=== PATIENT | female | born 1965 | race Caucasian/White ===

== ENCOUNTER 2020-10-03 12:09 | Inpatient (IN) ==
--- NOTE | 2020-10-03 14:07 | Emergency Department Note ---
Impression & Plan Acute hypoxemic respiratory failure, Orthopnea ED Provider Note NAME: CYNTHIA LOMBARDO AGE: 55 SEX: F : 1965 ARRIVES VIA: Walk-In INFORMANT: Patient, ED PROVIDER(S): Randal Major MD Chief Complaint: Shortness of breath HPI: Patient does present with concern for shortness of breath ongoing approximately 3 days. Patient states that it has been fairly constant but is worse with lying down on her back or on her stomach. The patient has had a nonproductive cough. No loss of taste or smell. No recent travel or history of DVT or PE. The patient has no prior history of heart or lung disease. Patient denies any fevers or chills. The patient is not take anything for it at home. The patient does have a history of anxiety but states typically it will just get better with time this has not done so. Patient was seen in the outpatient setting referred here for further evaluation treatment. The patient is not vaccinated for Covid. The patient is a non-smoker. Patient denies any chest pains. Patient denies any recent trauma or falls. Patient denies any nausea vomiting or diarrhea. Patient has not complained of any lower extremity swelling. ROS: See HPI for pertinent positives and negatives. A total of 10 systems were reviewed and otherwise negative. Past medical history: See below Surgical history: See below Social history: See below Physical Exam: GENERAL: NAD, wearing glasses, wearing a mask, non-toxic. EYE EXAM: Normal conjunctiva. PERRL, no anisocoria and EOM's grossly intact w/o pain. NECK: Supple, no nuchal rigidity, no adenopathy, non-tender. No signs of meningismus. LUNGS: Clear to auscultation. Normal chest wall mechanics. HEART: NSR, no MRG. ABDOMEN: Abdomen soft, non-tender, normo-active bowel sounds, no masses, no rebound or guarding. BACK: No CVA TTP. SKIN: No rashes and no bruising. UPPER EXTREMITIES: Upper extremities are grossly normal. LOWER EXTREMITIES: Grossly normal, no edema. Negative Homans' sign bilaterally. NEURO EXAM: A&O x3, cranial nerves II-XII grossly intact, normal speech, moves all 4 extremities on command w/o issue. Differential diagnoses: Reactive airway disease, pneumonia, pneumothorax, COPD, CHF, infections, cardiac ischemia, pulmonary embolism, musculoskeletal, gastrointestinal, as well as other pathologies. Course: Patient was seen and evaluated the bedside. Full history physical exam was performed. EKG interpreted by me Normal sinus rhythm, rate of 93, normal intervals, left axis deviation, Q waves inferiorly. No obvious ST changes. Imaging Studies: See Below Cardiac monitoring: An order was placed for continuous cardiac monitoring. The monitor shows a rate of 99 with sinus rhythm. MDM: Patient was seen due to concern for shortness of breath and primarily complains of orthopnea. The patient did have bladder complete along with CT angiography of the chest. The patient was initially refusing to lay flat for CT. The patient had been placed on oxygen for comfort and was given a small amount of At ana. Patient does have a normal white count H&H and platelet count. The patient's kidney function is unremarkable. Glucose is elevated. Initial troponin negative. BNP is not elevated. Covid negative. Patient CT of the chest shows lung along with low lung volumes with elevation of left hemidiaphragm. There is no obvious PE although somewhat suboptimal fully assessed due to respiratory motion. There are possible atelectatic changes although infection could appear similar. Cardiomegaly is noted with mild distal esophageal wall thickening. The patient was informed of these findings. The patient was hypoxic to 88% was placed on 2 L. The patient was ordered Zosyn to cover for possible infectious etiology of lung disease given the patient's CT scan and oxygen requirement. No obvious PE seen. Parent does not patient does not have any evidence of pericardial effusion. I did speak with the on-call hospitalist Ashlee Vergara PA-C and the patient was admitted to the medicine service by Dr. Nixon. Critical Care: I have personally spent 47 minutes of critical care time in direct management of this patient. This includes bedside care, interpretation of diagnostic studies, and testing, discussion with consultants, patient, and family members, and other require inpatient management activities. This 47 minutes is in excess of all separately billable procedures. Past Med/Surg History Medical History Diabetes mellitus, type II Obesity Panic disorder Surgical History Hx of cholecystectomy Family History Other Diabetes Hypertension Stroke Social History (Updated 10/03/20 @ 21:17 by Ashlee Vergara PA-C) Smoking Status: Never smoker Second Hand Exposure: No; Do You Dip or Chew Tobacco: No; Hx Alcohol Use: Yes Hx Substance Use: Yes Last Used Substance: Days (ago) Preferred Language: Guinean Current Living Situation: Alone Other Information That Helps Us Care for You: No Feels Safe at Home: Yes Assistive Devices: None Allergies Allergies Allergy/AdvReac Type Severity Reaction Status Date / Time Tetracyclines Allergy Mild Rash Unverified 10/03/20 14:19 Home Meds Home Medications Medication Instructions Recorded Confirmed bupropion HCl 150 mg tablet,12 hr 150 mg PO BID 10/03/20 10/03/20 sustained-release (Wellbutrin SR) dulaglutide 1.5 mg/0.5 mL 1.5 mg SUBCUT CAO 10/03/20 10/03/20 subcutaneous pen injector (Trulicity) escitalopram oxalate 10 mg tablet 10 mg PO DAILY 10/03/20 10/03/20 gabapentin 100 mg tablet 200 mg PO HS 10/03/20 10/03/20 glipizide 10 mg tablet, extended 10 mg PO DAILY 10/03/20 10/03/20 release 24 hr lorazepam 0.5 mg tablet 0.5 mg PO DAILY PRN 10/03/20 10/03/20 metformin 1,000 mg tablet 1,000 mg PO BID 10/03/20 10/03/20 Results & Data (ED) Vital Signs Vital Signs - 24 hr 10/03/20 12:54 10/03/20 14:32 10/03/20 14:51 Temperature 37.0 C Temperature Source Oral Pulse Rate 99 H 94 H Pulse Rate [Right Finger] Pulse Rate from SpO2 Sensor 94 H Respiratory Rate 14 25 H Respiratory Effort / Characteristics Blood Pressure 127/85 130/94 Blood Pressure Mean 99 106 Pulse Oximetry 95 98 94 Oxygen Delivery Method Room Air Room Air Oxygen Flow Rate Sepsis Recent Fever Within 48 Hours No Sepsis New/Unexplained Change in Mental Status No Sepsis Action Taken by Nursing No Action Required 10/03/20 15:00 10/03/20 15:09 10/03/20 15:30 Temperature Temperature Source Pulse Rate 90 99 H Pulse Rate [Right Finger] 93 H Pulse Rate from SpO2 Sensor 90 101 H Respiratory Rate 25 H 20 28 H Respiratory Effort / Characteristics Non-Labored Spontaneous Blood Pressure 163/98 H 127/92 Blood Pressure Mean 119 103 Pulse Oximetry 95 95 94 Oxygen Delivery Method Room Air Oxygen Flow Rate Sepsis Recent Fever Within 48 Hours Sepsis New/Unexplained Change in Mental Status Sepsis Action Taken by Nursing 10/03/20 16:01 10/03/20 16:53 10/03/20 17:00 Temperature Temperature Source Pulse Rate 111 H 123 H 108 H Pulse Rate [Right Finger] Pulse Rate from SpO2 Sensor 108 H Respiratory Rate 22 26 H Respiratory Effort / Characteristics Blood Pressure 151/94 H Blood Pressure Mean 113 Pulse Oximetry 88 L Oxygen Delivery Method Oxygen Flow Rate Sepsis Recent Fever Within 48 Hours Sepsis New/Unexplained Change in Mental Status Sepsis Action Taken by Nursing 10/03/20 17:30 Temperature Temperature Source Pulse Rate 112 H Pulse Rate [Right Finger] Pulse Rate from SpO2 Sensor 112 H Respiratory Rate 28 H Respiratory Effort / Characteristics Blood Pressure 151/110 H Blood Pressure Mean 123 Pulse Oximetry 94 Oxygen Delivery Method Nasal Cannula Oxygen Flow Rate 2 Sepsis Recent Fever Within 48 Hours Sepsis New/Unexplained Change in Mental Status Sepsis Action Taken by Shelter Medications Current Medication List: was personally reviewed by me Laboratory Data Attestation: I reviewed the patient's lab results. Result diagrams: 10/03/20 14:44 10/03/20 14:44 Lab Results 10/03/20 10/03/20 10/03/20 Range/Units 14:44 14:44 14:44 WBC 7.94 (4.8-10.8) K/uL RBC 4.78 (4.2-5.4) M/uL Hgb 14.0 (12.0-16.0) g/dL Hct 41.5 (37-47) % MCV 86.8 (80-100) fL MCH 29.3 (25-34) pg MCHC 33.7 (32-36) g/dL RDW Std Deviation 42.5 (36.4-46.3) fL RDW Coeff of Dutch 13.3 (11.5-14.5) % Plt Count 300 (130-400) K/uL MPV 9.7 (7.4-10.4) fL Immature Gran % (Auto) 0.3 % Neut % (Auto) 64.1 % Lymph % (Auto) 28.3 % [place] % (Auto) 4.7 % Eos % (Auto) 2.3 % Baso % (Auto) 0.3 % Neut # (Auto) 5.10 (1.4-6.5) K/uL Lymph # (Auto) 2.25 (1.2-3.4) K/uL [place] # (Auto) 0.37 (0.11-0.59) K/uL Eos # (Auto) 0.18 (0-0.5) K/uL Baso # (Auto) 0.02 (0-0.2) K/uL Immature Gran # (Auto) 0.02 (0.00-0.02) K/uL Sodium 137 (136-145) mmol/L Potassium 3.9 (3.5-5.1) mmol/L Chloride 104 (98-107) mmol/L Carbon Dioxide 23 (21-32) mmol/L Anion Gap 10.0 (3-11) BUN 5 L (7-18) mg/dl Creatinine 0.36 L (0.6-1.2) mg/dl Est Cr Clr Drug Dosing 194.1 ml/min Est GFR ( Amer) 142.7 ml/min Est GFR (Non-Af Amer) 123.1 ml/min BUN/Creatinine Ratio 14.6 (10-20) Glucose 211 H (70-99) mg/dl Calcium 9.1 (8.5-10.1) mg/dl Magnesium 2.0 (1.8-2.4) mg/dl Total Bilirubin 0.3 (0.2-1) mg/dl AST 11 L (15-37) U/L ALT 27 (12-78) U/L Alkaline Phosphatase 58 (45-117) U/L Troponin I < 0.015 (0-0.045) ng/ml NT-Pro-B Natriuret Pep 16 (0-900) pg/ml Total Protein 7.8 (6.4-8.2) gm/dl Albumin 3.7 (3.4-5.0) gm/dl Globulin 4.1 H (2.5-4.0) gm/dl Albumin/Globulin Ratio 0.9 (0.9-2) Procalcitonin (0-0.5) ng/ml COVID-19 Eval Order SARS-CoV-2 (PCR) (Negative) 10/03/20 10/03/20 10/03/20 Range/Units 14:44 14:54 14:54 WBC (4.8-10.8) K/uL RBC (4.2-5.4) M/uL Hgb (12.0-16.0) g/dL Hct (37-47) % MCV (80-100) fL MCH (25-34) pg MCHC (32-36) g/dL RDW Std Deviation (36.4-46.3) fL RDW Coeff of Dutch (11.5-14.5) % Plt Count (130-400) K/uL MPV (7.4-10.4) fL Immature Gran % (Auto) % Neut % (Auto) % Lymph % (Auto) % [place] % (Auto) % Eos % (Auto) % Baso % (Auto) % Neut # (Auto) (1.4-6.5) K/uL Lymph # (Auto) (1.2-3.4) K/uL [place] # (Auto) (0.11-0.59) K/uL Eos # (Auto) (0-0.5) K/uL Baso # (Auto) (0-0.2) K/uL Immature Gran # (Auto) (0.00-0.02) K/uL Sodium (136-145) mmol/L Potassium (3.5-5.1) mmol/L Chloride (98-107) mmol/L Carbon Dioxide (21-32) mmol/L Anion Gap (3-11) BUN (7-18) mg/dl Creatinine (0.6-1.2) mg/dl Est Cr Clr Drug Dosing ml/min Est GFR ( Amer) ml/min Est GFR (Non-Af Amer) ml/min BUN/Creatinine Ratio (10-20) Glucose (70-99) mg/dl Calcium (8.5-10.1) mg/dl Magnesium (1.8-2.4) mg/dl Total Bilirubin (0.2-1) mg/dl AST (15-37) U/L ALT (12-78) U/L Alkaline Phosphatase (45-117) U/L Troponin I (0-0.045) ng/ml NT-Pro-B Natriuret Pep (0-900) pg/ml Total Protein (6.4-8.2) gm/dl Albumin (3.4-5.0) gm/dl Globulin (2.5-4.0) gm/dl Albumin/Globulin Ratio (0.9-2) Procalcitonin < 0.05 (0-0.5) ng/ml COVID-19 Eval Order Covid19 at [facility] SARS-CoV-2 (PCR) NEGATIVE (Negative) Administered Medications Discontinued Medications Albuterol (Albut/Ipratrop 3mg/0.5mg Neb 3 Ml Vial) 6 ml INH NOW STA Stop: 10/03/20 14:33 Last Admin: 10/03/20 15:08 Dose: 6 ml Documented by: [id number] Sodium Chloride (Nss) 500 mls @ 999 mls/hr IV .Q31M STA Stop: 10/03/20 15:02 Last Infusion: 10/03/20 15:21 Dose: 999 mls/hr Documented by: [id number] Admin: 10/03/20 14:50 Dose: 999 mls/hr Documented by: [id number] Lorazepam (Ativan) 0.5 mg in 1 mls @ 1 mls/min IV NOW STA Stop: 10/03/20 16:37 Last Admin: 10/03/20 16:52 Dose: 1 mls/min Documented by: [id number] Piperacillin Sod/Tazobactam Sod (Zosyn) 4.5 gm in 120 mls @ 240 mls/hr IV NOW ONE Stop: 10/03/20 17:45 Last Infusion: 10/03/20 18:37 Dose: 240 mls/hr Documented by: [id number] Admin: 10/03/20 18:07 Dose: 240 mls/hr Documented by: [id number] Ioversol (Optiray 320 125ml) 119 ml IV ONCE ONE Stop: 10/03/20 16:18 Last Admin: 10/03/20 16:17 Dose: 119 ml Documented by: [id number] Methylprednisolone (Methylprednisolone 125 Mg/2 Ml Vial) 60 mg IV NOW STA Stop: 10/03/20 14:33 Last Admin: 10/03/20 14:49 Dose: 60 mg Documented by: [id number] Imaging Data Radiologist's Impression: Chest CTA 10/03/20 14:33 CT ANGIOGRAPHY OF THE CHEST, PULMONARY EMBOLUS PROTOCOL CLINICAL HISTORY: Chest pain. Shortness of breath. Evaluate for pulmonary embolus. COMPARISON STUDY: Chest radiograph May 09, 2014. TECHNIQUE: Following IV administration of 119 mL of Optiray, helical axial images of the chest were obtained utilizing the pulmonary embolus protocol. Maximal intensity projections and sagittal and coronal reformats were viewed on an independent 3D workstation. IV contrast was administered without complication. Automated exposure control was utilized for the study. A dose lowering technique was utilized adhering to the principles of ALARA. CT DOSE: 432.53 mGycm FINDINGS: No pulmonary emboli are identified although segmental and subsegmental pulmonary arteries are suboptimally assessed due to respiratory motion. Note is made of mild to moderate cardiomegaly. There is no pericardial effusion. Mild esophageal wall thickening is present. There is a possible small hiatal hernia. Elevation of the left hemidiaphragm is noted. Lung volumes are di minished. Subpleural lingular and left lower lobe opacity reflect atelectasis. There are additional moderate ground glass opacities within the lungs. Central airways are patent. No pneumothorax or pleural effusion. Lungs are suboptimally assessed due to respiratory motion. There is probable hepatic steatosis. IMPRESSION: 1. No pulmonary emboli identified although segmental and subsegmental pulmonary arteries suboptimally assessed due to respiratory motion. 2. Low lung volumes with elevation of the left hemidiaphragm. Associated lingular and left lower lobe opacity reflects atelectasis. Additional moderate bilateral airspace opacities within lungs favor atelectasis although an infectious process could appear similar. 3. Cardiomegaly. 4. Mild distal esophageal wall thickening. This is nonspecific although may reflect esophagitis. ACT 112: Negative or not required by law. Electronically signed by: Hung Cabral M.D. 10/03/2020 5:10 PM Discharge Plan Visit Data Chief Complaint: Shortness of Breath/Dyspnea Stated Complaint: SOB ED Provider: Randal Major Discharge Problem: Acute hypoxemic respiratory failure, Orthopnea Patient Disposition: Admitted As Inpatient Discharge Instructions Interventions: ED Discharge Assessment Last Done: 10/03/20 20:19
[2020-10-03] MEDS ORDERED: ALBUT/IPRATROP 3MG/0.5MG NEB 3 ML VIAL INH STA (14:32)
[2020-10-03] MEDS ORDERED: SODIUM CHLORIDE 0.9% 500 ML IV STA (14:32)
[2020-10-03] MEDS ORDERED: methylPREDNISolone 125 MG/2 ML VIAL IV STA (14:32)
[2020-10-03 15:05] LABS: Basophils # (auto) 0.02 K/uL (0-0.2); Basophils % (auto) 0.3 %; Eosinophils # (auto) 0.18 K/uL (0-0.5); Eosinophils % (auto) 2.3 %; Hematocrit (blood only) 41.5 % (37-47); Immature Granulocytes # (auto) 0.02 K/uL (0.00-0.02); Immature Granulocytes % (auto) 0.3 %; Lymphocytes # (auto) 2.25 K/uL (1.2-3.4); Lymphocytes % (auto) 28.3 %; Mean Corpuscular Hemoglobin 29.3 pg (25-34); Mean Corpuscular Hgb Conc 33.7 g/dL (32-36); Mean Corpuscular Volume 86.8 fL (80-100); Mean Platelet Volume 9.7 fL (7.4-10.4); Monocytes # (auto) 0.37 K/uL (0.11-0.59); Monocytes % (auto) 4.7 %; Neutrophils % (auto) 64.1 %; Platelet Count 300 K/uL (130-400); RDW Coefficient of Variation 13.3 % (11.5-14.5); RDW Standard Deviation 42.5 fL (36.4-46.3); Red Blood Count 4.78 M/uL (4.2-5.4); White Blood Count 7.94 K/uL (4.8-10.8)
[2020-10-03 15:23] LABS: Alanine Aminotransferase 27 U/L (12-78); Albumin Level 3.7 gm/dl (3.4-5.0); Aspartate Aminotransferase 11 U/L (15-37); BUN Creatinine Ratio 14.6 (10-20); Blood Urea Nitrogen 5 mg/dl (7-18); Calcium 9.1 mg/dl (8.5-10.1); Carbon Dioxide 23 mmol/L (21-32); Chloride 104 mmol/L (98-107); Creatinine Clr Calc Pharmacy 194.1 ml/min; Est GFR (African American) 142.7 ml/min; Est GFR (Non-African American) 123.1 ml/min; Glucose 211 mg/dl (70-99); Potassium 3.9 mmol/L (3.5-5.1); Sodium 137 mmol/L (136-145)
[2020-10-03 15:28] LABS: Albumin Globulin Ratio 0.9 (0.9-2); Alkaline Phosphatase 58 U/L (45-117); Bilirubin,Total 0.3 mg/dl (0.2-1); Globulin 4.1 gm/dl (2.5-4.0); Total Protein 7.8 gm/dl (6.4-8.2); Troponin I < 0.015 ng/ml (0-0.045)
[2020-10-03] MEDS ORDERED: OPTIRAY 320 125ml IV ONE (16:17)
[2020-10-03] MEDS ORDERED: LORazepam 0.5 MG/1 ML VIAL IV STA (16:36)
--- NOTE | 2020-10-03 17:11 | CT Scan Report ---
CT ANGIOGRAPHY OF THE CHEST, PULMONARY EMBOLUS PROTOCOL CLINICAL HISTORY: Chest pain. Shortness of breath. Evaluate for pulmonary embolus. COMPARISON STUDY: Chest radiograph May 09, 2014. TECHNIQUE: Following IV administration of 119 mL of Optiray, helical axial images of the chest were o btained utilizing the pulmonary embolus protocol. Maximal intensity projections and sagittal and cor onal reformats were viewed on an independent 3D workstation. IV contrast was administered without co mplication. Automated exposure control was utilized for the study. A dose lowering technique was ut ilized adhering to the principles of ALARA. CT DOSE: 432.53 mGycm FINDINGS: No pulmonary emboli are identified although segmental and subsegmental pulmonary arteries are suboptimally assessed due to respiratory motion. Note is made of mild to moderate cardiomegaly. T here is no pericardial effusion. Mild esophageal wall thickening is present. There is a possible smal l hiatal hernia. Elevation of the left hemidiaphragm is noted. Lung volumes are diminished. Subpleura l lingular and left lower lobe opacity reflect atelectasis. There are additional moderate ground glas s opacities within the lungs. Central airways are patent. No pneumothorax or pleural effusion. Lungs are suboptimally assessed due to respiratory motion. There is probable hepatic steatosis. IMPRESSION: 1. No pulmonary emboli identified although segmental and subsegmental pulmonary arteries suboptimally assessed due to respiratory motion. 2. Low lung volumes with elevation of the left hemidiaphragm. Associated lingular and left lower lobe opacity reflects atelectasis. Additional moderate bilateral airspace opacities within lungs favor at electasis although an infectious process could appear similar. 3. Cardiomegaly. 4. Mild distal esophageal wall thickening. This is nonspecific although may reflect esophagitis. ACT 112: Negative or not required by law. Electronically signed by: Hung Cabral M.D. 10/03/2020 5:10 PM
[2020-10-03] MEDS ORDERED: PIPERACILL/TAZOBAC CONSULT ACTIVE PRN (17:16)
[2020-10-03] MEDS ORDERED: PIPERACILLIN/TAZOBACTAM 4.5 GM/120 ML BAG IV ONE (17:16)
--- NOTE | 2020-10-03 17:50 | History & Physical Report ---
Date of Service October 03, 2020 Assessment & Plan (1) Orthopnea: Plan: This is a 55yo F with a PMH of panic disorder, type 2 diabetes and obesity who presents with worsening shortness of breath and orthopnea over the past 8 days. Dyspneic at baseline and orthopneic at night No history of CHF, pro-BNP WNL, no evidence of volume overload on chest CTA Afebrile, no leukocytosis or procal elevation to indicate PNA Chest CTA without pulmonary emboli identified although suboptimally assessed due to respiratory motion. Low lung volumes with elevation of the left hemidiaphragm. Associated lingular and LLL opacity reflects atelectasis Given Zosyn, IV solumedrol and albuterol in ER - not indicated to continue at this time Anxiety likely contributing - want to evaluate for cardiac cause as well given tachycardia and orthopnea Monitor on tele, trend troponin, TTE, nocturnal pulse ox, incentive spirometry (2) Diabetes mellitus, type II: Plan: A1c 11.2 in April 2020- repeat A1c Hold home agents BSG elevated at 324 following IV steroids in ED Glycemic consult placed for assistance with mgmt overnight BSG AC HS (3) Panic disorder: Plan: Continue lexapro, bupropion, ativan PRN DVT Ppx: SQ Lovenox Code status: FULL PCP: Renetta Ohara PA-C Dispo: Observation med tele Patient seen in collaboration with Dr. Nixon. Please see addendum. History of Present Illness Chief Complaint: SOB Primary Care Provider: Renetta Vaca PA-C This is a 55yo F with a PMH of panic disorder, type 2 diabetes and obesity who presents with worsening shortness of breath and orthopnea over the past 8 days. Patient is more dyspneic when lying flat to the point that she has been sleeping in an upright position. Believes that anxiety is contributing. Also admits to more sedentary lifestyle in the setting of working from home. Denies any fever, chills, congestion or productive cough. Intermittent dry cough. No chest pain. Does endorse palpitations this evening since breathing treatment and steroids in ED. Denies any lower extremity swelling or history of CHF. Denies any history of tobacco use or COPD. No new medications other than starting glipizide for type 2 diabetes. Denies fever, chills, lightheadedness, headache, chest pain, wheezing, nausea, vomiting, abdominal pain, dysuria, diarrhea constipation. Was sent over by Dr. Thibodeaux for further evaluation of dyspnea. Allergies Allergy/AdvReac Type Severity Reaction Status Date / Time Tetracyclines Allergy Mild Rash Unverified 10/03/20 14:19 Home Medications Medication Instructions Recorded Confirmed Type bupropion HCl 150 mg tablet,12 hr 150 mg PO BID 10/03/20 10/03/20 History sustained-release (Wellbutrin SR) dulaglutide 1.5 mg/0.5 mL 1.5 mg SUBCUT CAO 10/03/20 10/03/20 History subcutaneous pen injector (Trulicity) escitalopram oxalate 10 mg tablet 10 mg PO DAILY 10/03/20 10/03/20 History gabapentin 100 mg tablet 200 mg PO HS 10/03/20 10/03/20 History lorazepam 0.5 mg tablet 0.5 mg PO DAILY PRN 10/03/20 10/03/20 History metformin 1,000 mg tablet 1,000 mg PO BID 10/03/20 10/03/20 History guaifenesin 200 mg tablet 200 mg PO TID PRN #30 tab 10/07/20 Rx insulin glargine 100 unit/mL (3 45 unit SC DAILY 30 Days #13.5 ml 10/07/20 Rx mL) subcutaneous pen (Lantus Solostar U-100 Insulin) pen needle,diabetic, disp unit 32 #100 ea 10/07/20 Rx gauge x 5/32", remover and disposal unit Past Med/Surg History Medical History Diabetes mellitus, type II Obesity Panic disorder Surgical History Hx of cholecystectomy Family History Other Diabetes Hypertension Stroke Social History Smoking Status: Never smoker Second Hand Exposure: No; Hx Alcohol Use: Yes Hx Substance Use: Yes Last Used Substance: Days (ago) Preferred Language: Chinese Communication Ability: Effective marital status: Single Current Living Situation: Alone Feels Safe at Home: Yes Assistive Devices: None Review of Systems Review of Systems: At least ten systems reviewed and negative except as noted in the HPI. Physical Exam Physical Exam: General Appearance: WD/WN, vitals as above, NAD, sitting up in bed, pleasant, conversing easily Head: normocephalic, atraumatic Eyes: normal inspection, PERRL, conjunctivae normal, anicteric sclerae ENT: external ear and nose normal, oropharynx normal Neck: normal visual inspection, trachea midline, no thyromegaly Respiratory: increased respiratory effort, lungs diminished at bases, no wheeze, rales or rhonchi. + accessory muscle use Cardiovascular: tachycardic rate, rhythm, no murmur appreciated, normal peripheral pulses, no BLE edema. Vessels: no JVD Chest: normal inspection of chest Abdomen/GI: normal bowel sounds, soft, nontender, no hepatosplenomegaly Extremities/Musculoskeletal: no cyanosis or clubbing, extremities motor strength 5/5 Neurologic: PERRL, EOMI, accommodation nl, no face palsy, no dysarthria, CN's II-XI intact bilaterally and moves all extremities Psychiatric: A+Ox3, +anxious mood Skin: no rashes, normal color, warm/dry Results & Data Results & Data ([facility]) Vital Signs (Past 12 Hours) Vital Signs Temp Pulse Pulse Resp BP Pulse Ox 10/03/20 15:30 99 H 28 H 127/92 94 10/03/20 15:09 93 H 20 95 10/03/20 15:00 90 25 H 163/98 H 95 10/03/20 14:51 94 H 25 H 130/94 94 10/03/20 14:32 98 10/03/20 12:54 37.0 C 99 H 14 127/85 95 Laboratory Results Short CBC 10/03/20 10/03/20 Range/Units 14:44 14:44 WBC 7.94 (4.8-10.8) K/uL Hgb 14.0 (12.0-16.0) g/dL Hct 41.5 (37-47) % Plt Count 300 (130-400) K/uL Troponin I < 0.015 (0-0.045) ng/ml BMP 10/03/20 14:44 Sodium 137 Potassium 3.9 Chloride 104 Carbon Dioxide 23 BUN 5 L Creatinine 0.36 L Glucose 211 H Calcium 9.1 Cardiac Enzymes 10/03/20 10/03/20 Range/Units 14:44 14:44 Troponin I < 0.015 < 0.015 (0-0.045) ng/ml Liver Function 10/03/20 Range/Units 14:44 Total Bilirubin 0.3 (0.2-1) mg/dl AST 11 L (15-37) U/L ALT 27 (12-78) U/L Alkaline Phosphatase 58 (45-117) U/L Albumin 3.7 (3.4-5.0) gm/dl Diagnostic Findings Chest CTA 10/03/20 14:33 CT ANGIOGRAPHY OF THE CHEST, PULMONARY EMBOLUS PROTOCOL CLINICAL HISTORY: Chest pain. Shortness of breath. Evaluate for pulmonary embolus. COMPARISON STUDY: Chest radiograph May 09, 2014. TECHNIQUE: Following IV administration of 119 mL of Optiray, helical axial images of the chest were obtained utilizing the pulmonary embolus protocol. Maximal intensity projections and sagittal and coronal reformats were viewed on an independent 3D workstation. IV contrast was administered without complication. Automated exposure control was utilized for the study. A dose lowering technique was utilized adhering to the principles of ALARA. CT DOSE: 432.53 mGycm FINDINGS: No pulmonary emboli are identified although segmental and subsegmental pulmonary arteries are suboptimally assessed due to respiratory motion. Note is made of mild to moderate cardiomegaly. There is no pericardial effusion. Mild esophageal wall thickening is present. There is a possible small hiatal hernia. Elevation of the left hemidiaphragm is noted. Lung volumes are diminished. Subpleural lingular and left lower lobe opacity reflect atelectasis. There are additional moderate ground glass opacities within the lungs. Central airways are patent. No pneumothorax or pleural effusion. Lungs are suboptimally assessed due to respiratory motion. There is probable hepatic steatosis. IMPRESSION: 1. No pulmonary emboli identified although segmental and subsegmental pulmonary arteries suboptimally assessed due to respiratory motion. 2. Low lung volumes with elevation of the left hemidiaphragm. Associated lingular and left lower lobe opacity reflects atelectasis. Additional moderate bilateral airspace opacities within lungs favor atelectasis although an infectious process could appear similar. 3. Cardiomegaly. 4. Mild distal esophageal wall thickening. This is nonspecific although may reflect esophagitis. ACT 112: Negative or not required by law. Electronically signed by: Hung Cabral M.D. 10/03/2020 5:10 PM Code Status & VTE Plan VTE Prophylaxis Plan VTE Prophylaxis will be ordered: Yes Supervising Physician Co-Signing Physician Notes Pt seen and examined by me, care coordinated with Ashlee Vergara PA-C, pls refer to her note above for further detail. Pt is a 55yo F w/ hx of panic disorder, type 2 diabetes and obesity who presents with worsening shortness of breath and orthopnea over the past week. Patient believes that her anxiety is contributing, has had anxiety for past 20 yrs. Denies any fever, chills, congestion or productive cough. No chest pain. +palpitations this evening since breathing treatment and steroids in ED. Denies any lower extremity swelling or history of CHF. Denies any history of tobacco use or COPD. CT PE obtained in ED negative for PE. EKG abnormal, last EKG to compare is from 2014. I repeated EKG as pt continues to be tachycardic on my evaluation - current EKG shows PVC, but no ischemic changes. Troponin negative. Infectious etiology unlikely, will follow procalcitonin, plan to discontinue Abx, received zosyn in ED. Currently pt is sitting up in bed, using suppl. O2 but able to speak in full sentences. She is alert and oriented and answering questions appropriately. Overall clear to auscultation without any rhonchi, crackles, or wheezing. HR in 110-120s. Abdomen soft, nontender, nondistended. No LE edema. Skin is warm, dry well perfused. Will admit to tele, will repeat EKG AM, overnight cont. to trend troponin. Plan for Echo in the morning. Await procalcitonin. Encourage IS. Lynn Nixon MD
[2020-10-03] MEDS ORDERED: GLUCOSE 10 TABS/TUBE PO PRN (20:44)
[2020-10-03] MEDS ORDERED: ALBUT/IPRATROP 3MG/0.5MG NEB 3 ML VIAL NEB PRN (20:44)
[2020-10-03] MEDS ORDERED: ACETAMINOPHEN 325 MG TAB PO PRN (20:44)
[2020-10-03] MEDS ORDERED: ONDANSETRON INJ 2 MG/ML 2 ML VIAL IV PRN (20:44)
[2020-10-03] MEDS ORDERED: GLUCAGON FOR INJ 1 MG VIAL SQ PRN (20:44)
[2020-10-03] MEDS ORDERED: GLUCOSE 40% GEL 15 GM TUBE PO PRN (20:44)
[2020-10-03] MEDS ORDERED: CARBOHYDRATES FOR HYPOGLYCEMIA PO PRN (20:44)
[2020-10-03] MEDS ORDERED: DEXTROSE 50% 50 ML SYRINGE IV PRN (20:44)
[2020-10-03] MEDS ORDERED: POLYETHYLENE (MIRALAX) 17 GM PACK PO PRN (20:44)
[2020-10-03] MEDS ORDERED: LORazepam 0.5 MG TAB PO PRN (21:01)
[2020-10-03] MEDS ORDERED: PHARMACY GLYCEMIC MGMT CONSULT PRN (21:04)
[2020-10-03 21:18] LABS: Phosphorus 3.3 mg/dl (2.5-4.9); Troponin I < 0.015 ng/ml (0-0.045)
[2020-10-03] MEDS: MELATONIN 3 MG TAB PO PRN (21:35)
[2020-10-03] MEDS: ENOXAPARIN INJ 40 MG/0.4 ML SYR SQ SCH (21:36)
[2020-10-03] MEDS: GABAPENTIN 100 MG CAP PO SCH (21:36)
[2020-10-03] MEDS: INSULIN ASPART 100 UNITS/ML 3 ML PEN SC SCH (21:36)
[2020-10-03] MEDS: buPROPion SR 150 MG TABCR PO SCH (21:36)
[2020-10-04] MEDS: INSULIN ASPART 100 UNITS/ML 3 ML PEN SC SCH ×6 (00:41→20:39)
[2020-10-04 02:41] LABS: Hematocrit (blood only) 41.1 % (37-47); Hemoglobin 13.9 g/dL (12.0-16.0); Mean Corpuscular Hemoglobin 29.5 pg (25-34); Mean Corpuscular Hgb Conc 33.8 g/dL (32-36); Mean Corpuscular Volume 87.3 fL (80-100); Mean Platelet Volume 9.6 fL (7.4-10.4); Platelet Count 302 K/uL (130-400); RDW Coefficient of Variation 13.6 % (11.5-14.5); RDW Standard Deviation 42.9 fL (36.4-46.3); Red Blood Count 4.71 M/uL (4.2-5.4); White Blood Count 11.18 K/uL (4.8-10.8)
[2020-10-04 03:00] LABS: BUN Creatinine Ratio 16.7 (10-20); Blood Urea Nitrogen 8 mg/dl (7-18); Carbon Dioxide 25 mmol/L (21-32); Chloride 105 mmol/L (98-107); Creatinine Clr Calc Pharmacy 143.6 ml/min; Est GFR (African American) 129.8 ml/min; Glucose 227 mg/dl (70-99); Potassium 4.2 mmol/L (3.5-5.1); Sodium 138 mmol/L (136-145)
[2020-10-04 03:05] LABS: Troponin I < 0.015 ng/ml (0-0.045)
[2020-10-04] MEDS: buPROPion SR 150 MG TABCR PO SCH ×2 (08:39→20:37)
[2020-10-04] MEDS: ESCITALOPRAM OXALATE 10 MG TAB PO SCH (08:39)
--- NOTE | 2020-10-04 08:58 | Electrocardiogram Report ---
Test Reason : Blood Pressure : / mmHG Vent. Rate : 105 BPM Atrial Rate : 105 BPM P-R Int : 156 ms QRS Dur : 092 ms QT Int : 344 ms P-R-T Axes : 040 -43 038 degrees QTc Int : 454 ms Sinus tachycardia Left axis deviation Abnormal ECG When compared with ECG of 03-OCT-2020 20:13, (unconfirmed) Premature atrial complexes are no longer Present Confirmed by Arnel Fonseca ([id number]) on 10/04/2020 8:57:58 AM Referred By: REFERRED SELF Confirmed By:Arnel Fonseca
[2020-10-04] MEDS: INSULIN GLARGINE SOLOSTAR 100 UNITS/ML 3 ML PEN SC SCH (09:18)
--- NOTE | 2020-10-04 10:13 | Pharmacy Report ---
Pharmacy Glycemic Short Note 2 - Date of Service October 04, 2020 - Glycemic Short BSG Results (Last 24 hours): 10/03/20 10/03/20 10/04/20 14:44 20:59 00:21 Glucose 211 H POC Glucose 324 H* 264 H 10/04/20 10/04/20 10/04/20 02:25 04:02 07:56 Glucose 227 H POC Glucose 175 H 226 H OUTPATIENT ANTIDIABETIC REGIMEN: * Trulicity 1.5 mg SC weekly on Sundays * Glipizide 10 mg PO daily * Metformin 1000 mg PO BIDM * HbA1c ordered for tomorrow morning ASSESSMENT: * CC is a 55 year old female who presents with worsening shortness of breath/orthopnea over past ~week * Patient has history of T2DM managed with Trulicity and oral agents * BSGs elevated on admission 211 mg/dL * Solu-medrol 60 mg IV x 1 given in ED -> BSG spiked to 324 mg/dL yesterday evening * No basal insulin given overnight, managed with SC Novolog q4h * No ongoing steroids ordered * Fasting BSG of 226 mg/dL - will order ~0.2 unit/kg basal dose this morning PLAN FOR INPATIENT GLYCEMIC CONTROL: * Hold outpatient oral diabetes medications * Basal insulin * Lantus 20 units SC daily (~0.2 unit/kg) * Bolus insulin * NovoLog per scale ACHS or Q6hrs while NPO * Goal Range: Low 110 mg/dL - High 140 mg/dL * Correction Factor: 25 mg/dL/unit * Nutritional / Prandial insulin per carb ratio of 1 unit per 9 grams CHO consumed * 0200 check with same parameters PLAN FOR DISCHARGE: * Await HbA1c
[2020-10-04] MEDS: LORazepam 0.5 MG TAB PO PRN (11:15)
--- NOTE | 2020-10-04 13:00 | Hospitalist Progress Note ---
Date of Service October 04, 2020 Assessment & Plan (1) Orthopnea: Plan: Worsening SOB associated with orthopnea in the last 8 days CTA chest no pulmonary emboli identified although segmental and subsegmental pulmonary arteries suboptimally assessed due to respiratory motion. Low lung volumes with elevation of the left hemidiaphragm. Associated lingular and left lower lobe opacity reflects atelectasis. Additional moderate bilateral airspace opacities within lungs favor atelectasis although an infectious process could appear similar. pro-BNP WNL, no evidence of volume overload on chest CTA No sign of infection Afebrile, no leukocytosis or procal elevation to indicate PNA Received IV solumedrol and Zosyn on admission- Abx discontinued Continue to have pressure like chest discomfort Troponin negative ECHO pending Will consult cardiology Will continue monitor (2) Diabetes mellitus, type II: Plan: A1c 11.2 in April 2020- repeat A1c Hold home agents BSG elevated at 324 following IV steroids in ED Glycemic consult placed for assistance with mgmt overnight BSG AC HS (3) Panic disorder: Plan: Continue lexapro, bupropion, ativan PRN DVT Ppx: SQ Lovenox Code status: FULL PCP: Renetta Ohara PA-C Dispo: Will discharge once medically stable Admission and Anticipated Discharge Date Admission Date: October 03, 2020 Subjective Pt was seen and examined for follow up of SOB and pressure like discomfort Pt said that she continues to have a pressure in her chest She said that she is unable to lie down flat in the bed She said that she does have SOB with minimal exertion She denies any fever, chills, cough Physical Exam Physical Exam: General- No acute distress Head- atraumatic Eyes- PERRL, EOMI, ENT- oropharynx clear Neck- supple, no JVD Lungs- clear to auscultation Heart- regular rhythm; no murmur Abdomen- normal bowel sounds, soft, nontender Extremities- no calf tenderness Neuro- alert, oriented x 3; PERRL, EOMI; no facial palsy; no dysarthria Skin- warm & dry Results & Data Results & Data ([facility]) Vital Signs (Past 12 Hours) Vital Signs Temp Pulse Pulse Resp BP Pulse Ox Pulse Ox 10/04/20 11:34 36.8 C 96 H 18 136/84 96 10/04/20 07:46 36.4 C L 112 H 18 138/87 92 10/04/20 04:22 110 H 90 10/04/20 04:12 36.8 C 60 18 110/70 97
--- NOTE | 2020-10-04 16:40 | Cardiology Consultation ---
Date of Consultation October 04, 2020 Assessment & Plan (1) Panic disorder: Patient describes subjective shortness of breath and orthopnea. EKG performed 10/04/2020 at 1618 a.m. and reviewed independently reveals sinus tachycardia 105 bpm. Compared to the previous performed yesterday, the previous premature atrial contractions resolved. No evidence of ischemia. Troponin I has been undetectable x3. Echocardiogram reveals normal to hyperdynamic left ventricular systolic function, grade 1 diastolic dysfunction, which is normal for age without Doppler evidence of elevated filling pressures. There is no significant valvular heart disease, no pericardial effusion. The patient is very concerned about her symptoms. I recommend that she remains in the hospital to undergo an exercise stress echocardiogram which will be performed tomorrow. She notes no family history of heart disease. Her most recent LDL cholesterol was performed as an outpatient in April of this year was 80 mg/dL, which is acceptable for her risk factors. History of Present Illness Attending Physician: Gulshan Patricio MD History of Present Illness Chantale Mccarty is a 55-year-old female seen in cardiology consultation per the request of Dr. Patricio for the evaluation of shortness of breath with exertion and when lying flat. Her past medical history is notable for type 2 diabetes mellitus, obesity, and panic disorder. She describes that 5 days ago she had a hard time breathing and she feels like she has to take deep breaths. She has difficulty with shortness of breath with exertion and also feels like she has trouble lying flat like she is going to suffocate. She notes a lot of stress and anxiety at home. She lives independently. Allergies Allergy/AdvReac Type Severity Reaction Status Date / Time Tetracyclines Allergy Mild Rash Unverified 10/03/20 14:19 Home Medications Medication Instructions Recorded Confirmed Type bupropion HCl 150 mg tablet,12 hr 150 mg PO BID 10/03/20 10/03/20 History sustained-release (Wellbutrin SR) dulaglutide 1.5 mg/0.5 mL 1.5 mg SUBCUT CAO 10/03/20 10/03/20 History subcutaneous pen injector (Trulicity) escitalopram oxalate 10 mg tablet 10 mg PO DAILY 10/03/20 10/03/20 History gabapentin 100 mg tablet 200 mg PO HS 10/03/20 10/03/20 History glipizide 10 mg tablet, extended 10 mg PO DAILY 10/03/20 10/03/20 History release 24 hr lorazepam 0.5 mg tablet 0.5 mg PO DAILY PRN 10/03/20 10/03/20 History metformin 1,000 mg tablet 1,000 mg PO BID 10/03/20 10/03/20 History Patient History Medical History Diabetes mellitus, type II Obesity Panic disorder Surgical History Hx of cholecystectomy Family History Other Diabetes Hypertension Stroke Social History Smoking Status: Never smoker Second Hand Exposure: No; Do You Dip or Chew Tobacco: No; Hx Alcohol Use: Yes Hx Substance Use: Yes Last Used Substance: Days (ago) Preferred Language: Croatian Current Living Situation: Alone Other Information That Helps Us Care for You: No Feels Safe at Home: Yes Assistive Devices: None Review of Systems Review of Systems: All systems reviewed & are unremarkable except as noted in HPI & below Physical Exam Physical Exam: Temp Pulse Resp BP Pulse Ox 36.8 C 98 H 18 121/79 94 10/04/20 15:02 10/04/20 15:02 10/04/20 15:02 10/04/20 15:02 10/04/20 15:02 Constitutional: well developed; not ill appearing Respiratory: normal respiratory effort, lungs clear to auscultation Cardiovascular: RRR, no murmur, no edema Gastrointestinal (Abdomen): normal bowel sounds, soft, nontender, no hepatosplenomegaly Neurologic: PERRL, EOMI, accommodation nl, no face palsy, no dysarthria Psychiatric: Orientation: oriented x 3 and cooperative Results & Data ([place]) Vital Signs (Past 12 Hours) Vital Signs Temp Pulse Resp BP Pulse Ox 10/04/20 15:02 36.8 C 98 H 18 121/79 94 10/04/20 11:34 36.8 C 96 H 18 136/84 96 10/04/20 07:46 36.4 C L 112 H 18 138/87 92
[2020-10-04] MEDS: ENOXAPARIN INJ 40 MG/0.4 ML SYR SQ SCH (20:36)
[2020-10-04] MEDS: GABAPENTIN 100 MG CAP PO SCH (20:36)
[2020-10-04] MEDS: MELATONIN 3 MG TAB PO PRN (20:46)
[2020-10-05] MEDS ORDERED: INSULIN ASPART 100 UNITS/ML 3 ML PEN SC SCH (02:00)
[2020-10-05] MEDS: INSULIN ASPART 100 UNITS/ML 3 ML PEN SC SCH ×5 (06:13→21:18)
[2020-10-05 07:39] LABS: Estimated Average Glucose 269 mg/dl
[2020-10-05] MEDS: INSULIN GLARGINE SOLOSTAR 100 UNITS/ML 3 ML PEN SC SCH (10:08)
[2020-10-05] MEDS: ESCITALOPRAM OXALATE 10 MG TAB PO SCH (10:09)
[2020-10-05] MEDS: buPROPion SR 150 MG TABCR PO SCH ×2 (10:09→20:17)
--- NOTE | 2020-10-05 10:19 | Cardiology Progress Note ---
Date of Service October 05, 2020 Assessment & Plan (1) Orthopnea: Plan: The patient underwent an exercise stress echocardiogram. At the time of obtaining her baseline images, the patient states that she could not lie in the left lateral recumbent position due to this exacerbating her symptoms of feeling shortness of breath almost feeling "suffocating ". Images were therefore obtained with the head of the imaging table at a 45 degree angle. The patient exercised to a moderately high peak workload achieving 6 minutes on standard Renard protocol, with no definite repolarization changes to suggest ischemia. The test was terminated due to fatigue and shortness of breath, but when attempts were made for her to transition to the left lateral decubitus position, she described once again severe shortness of breath despite the head of the bed being elevated that reproduced her presenting symptoms. The echocardiographic images were very technically limited due to her being almost upright at the time of imaging, but the left ventricular systolic function incre ased appropriately. The patient was witnessed personally by the undersigned to become extremely orthopneic and uncomfortable when attempting to lie on the imaging table, with resolution of her symptoms immediately when she sat straight up. Her blood pressure response to stress was very elevated, with peak systolic blood pressure 240 mmHg. The results of this test are abnormal, however I do not think this is suggestive of coronary heart disease, although of course this is a consideration in a patient with uncontrolled diabetes and hemoglobin A1c of 11% this is still a consideration.. I went back and reviewed her resting echocardiogram images obtained 10/04/2020. Stable findings were sinus tachycardia 100 bpm, hyperdynamic biventricular systolic function. Grade 1 diastolic dysfunction was noted without suggestion of elevated LV filling pressures. I reviewed the report and the images of her CT angiogram of the chest. The screening chest x-ray image suggests left greater than right bilateral hemidiaphragm elevation in the lung volumes. I compared this to her previous chest x-ray dating back to 2014, and this appears to be a new finding. Left hemidiaphragm dysfunction with certainly explain the reproduction of her symptoms when being asked to lie in the left lateral decubitus position. Per review of her vital signs, she does not have poorly controlled hypertension and I do not think that her With regards to her hypertensive response to exercise, I reviewed her recent blood pressure data, and she does not appear to have uncontrolled hypertension otherwise, and therefore is difficult to say whether or not the symptoms of not being able to breathe after the stress test were due to high blood pressure, or if the high blood pressure was a result of her sensation of not being able to breathe. I am going to advance her diet. I have ordered a formal PA and lateral upright chest x-ray as well as a "sniff test "to assess diaphragmatic motion with respiration. I am going to consult pulmonary medicine to this regard for further input. Admission and Anticipated Discharge Date Admission Date: October 03, 2020 Subjective Patient seen in cardiology follow-up prior to, during, and after exercise stress echocardiogram today. Patient states that she had somewhat of a restful night, she was difficult getting comfortable, due to the noise in the [place]. Her blood pressure has been well controlled overnight. Serial cardiac enzymes are negative. Review of Systems Review of Systems: All systems reviewed & are unremarkable except as noted in HPI & below Respiratory: Shortness of breath when she attempts to lie flat Physical Exam Physical Exam: Temp Pulse Resp BP Pulse Ox 36.8 C 91 H 18 130/89 91 10/05/20 07:23 10/05/20 07:23 10/05/20 07:23 10/05/20 07:23 10/05/20 07:23 Constitutional: WD/WN, vitals as above Respiratory: normal respiratory effort, lungs clear to auscultation Cardiovascular: RRR, no murmur, no edema Gastrointestinal (Abdomen): normal bowel sounds, soft, nontender, no hepatosplenomegaly Neurologic: PERRL, EOMI, accommodation nl, no face palsy, no dysarthria Results & Data ([facility]) Vital Signs (Past 12 Hours) Vital Signs Temp Pulse Pulse Resp BP BP Pulse Ox 10/05/20 07:23 36.8 C 91 H 18 130/89 91 10/05/20 04:26 36.6 C 99 H 20 131/72 92 10/05/20 00:42 88 10/04/20 23:51 36.6 C 89 20 114/74 92 Laboratory Results Intake and Output 10/04/20 10/05/20 10/05/20 22:59 06:59 14:59 Intake Total 240 / 1080 200 / 1080 Balance 240 / 1080 200 / 1080 Intake: Oral 240 / 1080 200 / 1080 Other: Weight 90 kg Weight Measurement Method Standing Scale Diagnostic Findings EKG performed 10/04/2020 revealed sinus tachycardia 105 bpm, with poor R wave progression noted in the precordial leads likely due to body habitus, no significant repolarization changes.
--- NOTE | 2020-10-05 11:40 | XRay Report ---
XR chest 2V PA/lateral CLINICAL HISTORY: orthopnea, concern for diaphragmatic paralysis COMPARISON STUDY: Chest radiograph May 09, 2014. Chest CT October 03, 2020. FINDINGS: Incidental note is made of cholecystectomy clips. Prominent gaseous distention of the colon is noted. Lung volumes are diminished. Moderate elevation the right hemidiaphragm is noted. There is mild elevation the right hemidiaphragm. There is no pneumothorax or pleural effusion. There is no ev idence for pulmonary edema. Mild cardiomegaly is noted. Bibasilar opacities favor atelectasis. IMPRESSION: 1. Low lung volumes. Moderate elevation of the left hemidiaphragm and mild elevation of the right hem idiaphragm. 2. Bibasilar opacities which favor atelectasis. ACT 112: Negative or not required by law. Electronically signed by: Hung Cabral M.D. 10/05/2020 11:39 AM
--- NOTE | 2020-10-05 11:52 | Fluoroscopy Report ---
FL sniff test CLINICAL HISTORY: orthopnea, concern for diaphragmatic dysfunction COMPARISON STUDY: Chest CT October 03, 2020. FLUOROSCOPY TIME: 0.3 minutes. FLUOROSCOPIC IMAGES: 0. Video fluoroscopy was performed. FINDINGS: There is moderate elevation of the hemidiaphragms, greater on the left. Lung volumes are di minished. There is no evidence for hemidiaphragm paralysis. However, there is diminished motion of sandhya th hemidiaphragms suggestive of paresis. There is no paradoxical motion of the hemidiaphragms. IMPRESSION: 1. Moderate elevation of the hemidiaphragms, greater on the left. 2. No evidence for hemidiaphragm paralysis. However, diminished motion of both hemidiaphragms suggest silvio of paresis. ACT 112: Negative or not required by law. Electronically signed by: Hung Cabral M.D. 10/05/2020 11:51 AM
--- NOTE | 2020-10-05 12:41 | Pharmacy Report ---
Pharmacy Glycemic Short Note 2 - Date of Service October 05, 2020 - Glycemic Short BSG Results (Last 24 hours): 10/04/20 10/04/20 10/05/20 16:29 20:21 02:15 POC Glucose 260 H 293 H 177 H 10/05/20 10/05/20 10/05/20 05:54 07:38 12:00 POC Glucose 232 H 239 H 284 H OUTPATIENT ANTIDIABETIC REGIMEN: * Trulicity 1.5 mg SC weekly on Sundays * Glipizide 10 mg PO daily * Metformin 1000 mg PO BIDM * HbA1c: 11% (10/05/20) ASSESSMENT: 10/05: * BSGs elevated yesterday, ranging 226-293 mg/dL * Received 63 units of insulin (20 units of Lantus and 43 units of prandial/correctional bolus) * NPO this morning for stress echocardiogram, diet ordered for lunch * Will increase Lantus and tighten Novolog 10/04: * CC is a 55 year old female who presents with worsening shortness of breath/orthopnea over past ~week * Patient has history of T2DM managed with Trulicity and oral agents * BSGs elevated on admission 211 mg/dL * Solu-medrol 60 mg IV x 1 given in ED -> BSG spiked to 324 mg/dL yesterday evening * No basal insulin given overnight, managed with SC Novolog q4h * No ongoing steroids ordered * Fasting BSG of 226 mg/dL - will order ~0.2 unit/kg basal dose this morning PLAN FOR INPATIENT GLYCEMIC CONTROL: * Hold outpatient oral diabetes medications * Basal insulin - increase * Lantus 20 units SC x 1 this morning * Will order additional Lantus 20 units with lunch now that diet is ordered * Bolus insulin * NovoLog per scale ACHS or Q6hrs while NPO * Goal Range: Low 110 mg/dL - High 140 mg/dL * Correction Factor: 20 mg/dL/unit * Nutritional / Prandial insulin per carb ratio of 1 unit per 6 grams CHO consumed * Overnight checks at 00,04 with same parameters PLAN FOR DISCHARGE: * HbA1c of 11% is significantly above goal of less than 7% * Continue Trulicity and metformin * Patient should be initiated on insulin at discharge - likely d/c glipizide if this does happen * Doses TBD
[2020-10-05] MEDS ORDERED: INSULIN GLARGINE SOLOSTAR 100 UNITS/ML 3 ML PEN SC ONE ×2 (12:45)
--- NOTE | 2020-10-05 17:03 | Hospitalist Progress Note ---
Date of Service October 05, 2020 Assessment & Plan (1) Orthopnea: Plan: Worsening SOB associated with orthopnea in the last 8 days CTA chest no pulmonary emboli identified although segmental and subsegmental pulmonary arteries suboptimally assessed due to respiratory motion. Low lung volumes with elevation of the left hemidiaphragm. Associated lingular and left lower lobe opacity reflects atelectasis. Additional moderate bilateral airspace opacities within lungs favor atelectasis although an infectious process could appear similar. pro-BNP WNL, no evidence of volume overload on chest CTA No sign of infection Afebrile, no leukocytosis or procal elevation to indicate PNA Received IV solumedrol and Zosyn on admission- Abx discontinued Continue to have pressure like chest discomfort Troponin negative x3 negative ECHO showed LV wall motion is normal to hyperdynamic. Ejection fraction 65 to 70% Cardiology on board Exercise stress echo was terminated after 6-minute due to patient became fatigue with no definite repolarization changes to suggest ischemia. As per cardio her symptom does not seem to correlate with cardiac etiology (2) Elevated hemidiaphragm: Plan: Etiology unknown CTA chest showed low lung volumes with elevation of the left hemidiaphragm Sniff test showed moderate elevation of the hemidiaphragms, greater on the left. No evidence for hemidiaphragm paralysis. However, diminished motion of both hemidiaphragms suggestive of paresis. Pulmonology on board ABG obtained and did not showed no evidence of hypercapnic Patient will need outpatient PFT to assess supine and upright spirometry to look at the left VC Continue incentive spirometry Will need CT surgeon eval for possible plication of the left side diaphragm (3) Diabetes mellitus, type II: Plan: Most recent hemoglobin A1c 11 on 10/05/20 Hold home agents BSG elevated at 324 following IV steroids in ED Pharmacy consulted for glycemic management inclusion paraeducator on board Patient agreed to start on insulin on discharge Continue monitor blood sugar (4) Panic disorder: Plan: Continue lexapro, bupropion, ativan PRN DVT Ppx: SQ Lovenox Code status: FULL PCP: Renetta Ohara PA-C Dispo: Will discharge once medically stable Admission and Anticipated Discharge Date Admission Date: October 03, 2020 Subjective Patient was seen and examined for follow-up of shortness of breath Sitting in bed with no distress Patient said she continued to have hard time to breathe while lying down flat She said that she got tired after 6-minute during the stress test Denies any chest pain, palpitation, dizziness, and fever Physical Exam Physical Exam: General- No acute distress Head- atraumatic Eyes- PERRL, EOMI, ENT- oropharynx clear Neck- supple, no JVD Lungs- clear to auscultation Heart- regular rhythm; no murmur Abdomen- normal bowel sounds, soft, nontender Extremities- no calf tenderness Neuro- alert, oriented x 3; PERRL, EOMI; no facial palsy; no dysarthria Skin- warm & dry Results & Data Results & Data ([facility]) Vital Signs (Past 12 Hours) Vital Signs Temp Pulse Pulse Resp BP Pulse Ox 10/05/20 15:06 36.9 C 105 H 16 120/84 92 10/05/20 07:23 36.8 C 91 H 18 130/89 91 10/05/20 07:00 97 H
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
[2020-10-05 19:05] LABS: Base Excess ABG -0.4 mEq/L (-9-1.8); HCO3 ABG 23 mmol/L (19-24); Oxygen Saturation ABG 94.9 % (90-95); PCO2 ABG 36 mmHg (35-46); PO2 ABG 70 mmHg (80-95); pH ABG 7.43 (7.35-7.45)
[2020-10-05 19:07] LABS: Allen Test POS (Pos)
[2020-10-05] MEDS: LORazepam 0.5 MG TAB PO PRN (20:16)
[2020-10-05] MEDS: MELATONIN 3 MG TAB PO PRN (20:17)
[2020-10-05] MEDS: GABAPENTIN 100 MG CAP PO SCH (20:17)
[2020-10-05] MEDS: ENOXAPARIN INJ 40 MG/0.4 ML SYR SQ SCH (20:17)
[2020-10-06] MEDS: INSULIN ASPART 100 UNITS/ML 3 ML PEN SC SCH ×6 (00:03→20:43)
[2020-10-06 05:42] LABS: Hematocrit (blood only) 40.4 % (37-47); Hemoglobin 13.4 g/dL (12.0-16.0); Mean Corpuscular Hemoglobin 29.5 pg (25-34); Mean Corpuscular Hgb Conc 33.2 g/dL (32-36); Mean Platelet Volume 9.6 fL (7.4-10.4); Platelet Count 310 K/uL (130-400); RDW Coefficient of Variation 13.6 % (11.5-14.5); RDW Standard Deviation 44.5 fL (36.4-46.3); Red Blood Count 4.54 M/uL (4.2-5.4); White Blood Count 8.91 K/uL (4.8-10.8)
[2020-10-06 06:15] LABS: Creatinine Clr Calc Pharmacy 141.4 ml/min; Est GFR (African American) 128.9 ml/min; Est GFR (Non-African American) 111.2 ml/min
[2020-10-06] MEDS: buPROPion SR 150 MG TABCR PO SCH ×2 (08:32→20:36)
[2020-10-06] MEDS: ESCITALOPRAM OXALATE 10 MG TAB PO SCH (08:32)
[2020-10-06] MEDS ORDERED: INSULIN GLARGINE SOLOSTAR 100 UNITS/ML 3 ML PEN SC SCH (09:00)
--- NOTE | 2020-10-06 11:39 | Cardiology Progress Note ---
Date of Service October 06, 2020 Assessment & Plan (1) Elevated hemidiaphragm: (2) Shortness of breath: (3) Orthopnea: Plan: Arterial blood gas performed on room air yesterday revealed pH 7.43, PCO2 36, PaO2 78 mmHg, bicarbonate 23, oxygen saturation 94.9%. Nocturnal pulse oximetry recorded this hospital stay 10/04, was in the low 80s, 82 to 87%, one measurement as low as 76%. Chest x-ray reveals low lung volumes, moderate elevation of the left hemidiaphragm and mild elevation of the right hemidiaphragm with atelectasis. Fluoroscopy sniff test revealed moderate elevation of the hemidiaphragms, greater on the left, without evidence of paralysis however diminished motion of both hemidiaphragms noted, consistent with paresis per the radiology report. Pulmonary medicine input noted and appreciated, screen for myasthenia gravis antibodies obtained, results of which are pending. Of note, the patient's images from 2014 do not reflect hemidiaphragm elevation, and she did have a cholecystectomy and hernia repair at around that time. We will proceed with obtaining lung volumes, and anticipate outpatient consultation with [place] [facility] I have placed a referral in her outpatient chart. Once the spirometry is completed, I anticipate she will be stable for discharge. Of note her diabetes is poorly controlled, hemoglobin A1c 11%, we need to work on optimizing this as an outpatient because of surgical plication of the left hemidiaphragm is to take place, she would need to be optimized from a diabetes standpoint in advance and effort to promote healing. Admission and Anticipated Discharge Date Admission Date: October 05, 2020 Subjective Patient seen in follow-up. She slept last night sitting upright with adjustable bed, and in the bedside chair as has been her routine at home for the week leading up to this hospital stay. Telemetry reveals sinus rhythm and sinus tachycardia in the range of 90 to 100 bpm. Physical Exam Physical Exam: Temp Pulse Resp BP Pulse Ox 36.8 C 100 H 18 115/79 95 10/06/20 11:09 10/06/20 11:09 10/06/20 11:09 10/06/20 11:10/06/20 11:09 Constitutional: no acute distress Respiratory: Decreased breath sounds bilaterally at the bases, no wheezing, good respiratory effort Cardiovascular: RRR, no murmur, no edema Gastrointestinal (Abdomen): normal bowel sounds, soft, nontender, no hepatosplenomegaly Neurologic: PERRL, EOMI, accommodation nl, no face palsy, no dysarthria Results & Data ([facility]) Vital Signs (Past 12 Hours) Vital Signs Temp Pulse Resp BP Pulse Ox 10/06/20 11:09 36.8 C 100 H 18 115/79 95 10/06/20 08:19 36.6 C 101 H 16 127/73 92 10/06/20 05:01 36.6 C 101 H 18 118/80 92
[2020-10-06] MEDS ORDERED: INSULIN GLARGINE SOLOSTAR 100 UNITS/ML 3 ML PEN SC ONE (12:00)
[2020-10-06] MEDS ORDERED: INSULIN HUMAN REGULAR PER UNIT 5 UNITS in SYRINGE 4.95 ML IV ONE (12:00)
--- NOTE | 2020-10-06 12:08 | Pharmacy Report ---
Pharmacy Glycemic Short Note 2 - Date of Service October 06, 2020 - Glycemic Short BSG Results (Last 24 hours): 10/05/20 10/05/20 10/05/20 12:00 16:35 20:46 POC Glucose 284 H 266 H 223 H 10/05/20 10/06/20 10/06/20 23:57 03:41 07:59 POC Glucose 153 H 108 H 149 H 10/06/20 10/06/20 11:32 11:33 POC Glucose 304 H* 299 H OUTPATIENT ANTIDIABETIC REGIMEN: * Trulicity 1.5 mg SC weekly on Sundays * Glipizide 10 mg PO daily * Metformin 1000 mg PO BIDM * HbA1c: 11% (10/05/20) ASSESSMENT: 10/06: * BSGs elevated yesterday, ranging 153-284 mg/dL * Received 78 units of insulin (40 units of Lantus and 38 units of prandial/correctional bolus) * Fasting BSG of 144 mg/dL this morning and lunch BSG of 304 mg/dL * Will further tighten carb ratio and give IV insulin bolus with lunch (5 units IV x 1) * Increase basal insulin today 10/04: * CC is a 55 year old female who presents with worsening shortness of breath/orthopnea over past ~week * Patient has history of T2DM managed with Trulicity and oral agents * BSGs elevated on admission 211 mg/dL * Solu-medrol 60 mg IV x 1 given in ED -> BSG spiked to 324 mg/dL yesterday evening * No basal insulin given overnight, managed with SC Novolog q4h * No ongoing steroids ordered * Fasting BSG of 226 mg/dL - will order ~0.2 unit/kg basal dose this morning PLAN FOR INPATIENT GLYCEMIC CONTROL: * Hold outpatient oral diabetes medications * Basal insulin - increase * Lantus 25 units SC x 1 this morning * Will order additional Lantus 20 units with lunch * Bolus insulin * NovoLog per scale ACHS or Q6hrs while NPO * Goal Range: Low 110 mg/dL - High 140 mg/dL * Correction Factor: 20 mg/dL/unit * Nutritional / Prandial insulin per carb ratio of 1 unit per 5 grams CHO consumed * Overnight check at 0200 with same parameters PLAN FOR DISCHARGE: * HbA1c of 11% is significantly above goal of less than 7% * Continue Trulicity and metformin * Patient should be initiated on insulin at discharge * At this point, seems reasonable to discharge with insulin glargine 30 units SC daily * Suggest discontinuing glipizide if insulin is initiated to limit hypogl ycemia * Will require prompt outpatient follow-up for further insulin dose titration
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
--- NOTE | 2020-10-06 15:40 | Electrocardiogram Report ---
Test Reason : Blood Pressure : / mmHG Vent. Rate : 093 BPM Atrial Rate : 093 BPM P-R Int : 146 ms QRS Dur : 102 ms QT Int : 374 ms P-R-T Axes : 042 -50 030 degrees QTc Int : 465 ms Normal sinus rhythm Low voltage QRS Left anterior fascicular block Inferior infarct , age undetermined Cannot rule out Anterior infarct , age undetermined Abnormal ECG When compared with ECG of 09-MAY-2014 15:54, No significant change Confirmed by Arnel Fonseca ([id number]) on 10/06/2020 3:39:51 PM Referred By: SELF Confirmed By:Arnel Fonseca
--- NOTE | 2020-10-06 16:00 | Electrocardiogram Report ---
Test Reason : Blood Pressure : / mmHG Vent. Rate : 112 BPM Atrial Rate : 112 BPM P-R Int : 144 ms QRS Dur : 090 ms QT Int : 338 ms P-R-T Axes : 000 -43 014 degrees QTc Int : 461 ms Sinus tachycardia with Premature atrial complexes Left axis deviation Inferior infarct (cited on or before 03-OCT-2020) Abnormal ECG When compared with ECG of 03-OCT-2020 14:42, (unconfirmed) Premature atrial complexes are now Present Confirmed by Arnel Fonseca ([id number]) on 10/06/2020 3:59:58 PM Referred By: REFERRED SELF Confirmed By:Arnel Fonseca
--- NOTE | 2020-10-06 17:48 | Hospitalist Progress Note ---
Date of Service October 06, 2020 Assessment & Plan (1) Orthopnea: Plan: Worsening SOB associated with orthopnea in the last 8 days CTA chest no pulmonary emboli identified although segmental and subsegmental pulmonary arteries suboptimally assessed due to respiratory motion. Low lung volumes with elevation of the left hemidiaphragm. Associated lingular and left lower lobe opacity reflects atelectasis. Additional moderate bilateral airspace opacities within lungs favor atelectasis although an infectious process could appear similar. pro-BNP WNL, no evidence of volume overload on chest CTA No sign of infection Afebrile, no leukocytosis or procal elevation to indicate PNA Received IV solumedrol and Zosyn on admission- Abx discontinued Continue to have pressure like chest discomfort Troponin negative x3 negative ECHO showed LV wall motion is normal to hyperdynamic. Ejection fraction 65 to 70% Cardiology on board Exercise stress echo was terminated after 6-minute due to patient became fatigue with no definite repolarization changes to suggest ischemia. As per cardio her symptom does not seem to correlate with cardiac etiology Referral placed for thoracic surgeon at [facility] for the elevate hemidiaphragm (2) Elevated hemidiaphragm: Plan: Etiology unknown CTA chest showed low lung volumes with elevation of the left hemidiaphragm Sniff test showed moderate elevation of the hemidiaphragms, greater on the left. No evidence for hemidiaphragm paralysis. However, diminished motion of both hemidiaphragms suggestive of paresis. Pulmonology on board Continue guaifenesin and flutter valve ABG obtained and did not showed any evidence of hypercapnic Patient will need outpatient full PFT to assess supine and upright spirometry to look at the left VC Bedside spirometry done at baseline does not suggest any paralysis of the diaphragm Referral placed in [facility] for evaluation with thoracic surgeon at [facility] (3) Diabetes mellitus, type II: Plan: Most recent hemoglobin A1c 11 on 10/05/20 Hold home agents BSG elevated at 324 following IV steroids in ED Pharmacy consulted for glycemic management family life educator on board Patient agreed to start on insulin on discharge Continue monitor blood sugar (4) Panic disorder: Plan: Continue lexapro, bupropion, ativan PRN DVT Ppx: SQ Lovenox Code status: FULL PCP: Renetta Ohara PA-C Dispo: Possible discharge tomorrow Admission and Anticipated Discharge Date Admission Date: October 05, 2020 Subjective Patient was seen and examined for follow-up of orthopnea Sitting in chair with no distress Patient said she was able to sleep last night with the head of the bed tilted up She said that she is feeling better, but she continued to unable to bring up phlegm Denies any chest pain, palpitation, dizziness, shortness of breath. RN will tell you this report too much Tylenol on Physical Exam Physical Exam: General- No acute distress Head- atraumatic Eyes- PERRL, EOMI, ENT- oropharynx clear Neck- supple, no JVD Lungs- clear to auscultation Heart- regular rhythm; no murmur Abdomen- normal bowel sounds, soft, nontender Extremities- no calf tenderness Neuro- alert, oriented x 3; PERRL, EOMI; no facial palsy; no dysarthria Skin- warm & dry Results & Data Results & Data ([facility]) Vital Signs (Past 12 Hours) Vital Signs Temp Pulse Pulse Resp BP Pulse Ox 10/06/20 15:20 37.0 C 93 H 18 110/75 94 10/06/20 14:15 96 H 10/06/20 11:09 36.8 C 100 H 18 115/79 95 10/06/20 08:19 36.6 C 101 H 16 127/73 92 10/06/20 07:00 96 H
[2020-10-06] MEDS: LORazepam 0.5 MG TAB PO PRN (20:35)
[2020-10-06] MEDS: MELATONIN 3 MG TAB PO PRN (20:35)
[2020-10-06] MEDS: ENOXAPARIN INJ 40 MG/0.4 ML SYR SQ SCH (20:36)
[2020-10-06] MEDS: guaiFENesin 600 MG TABCR PO SCH (20:36)
[2020-10-06] MEDS: GABAPENTIN 100 MG CAP PO SCH (20:36)
[2020-10-07] MEDS ORDERED: INSULIN ASPART 100 UNITS/ML 3 ML PEN SC SCH (02:00)
[2020-10-07] MEDS: ESCITALOPRAM OXALATE 10 MG TAB PO SCH (08:51)
[2020-10-07] MEDS: guaiFENesin 600 MG TABCR PO SCH (08:51)
[2020-10-07] MEDS: buPROPion SR 150 MG TABCR PO SCH (08:51)
[2020-10-07] MEDS: INSULIN ASPART 100 UNITS/ML 3 ML PEN SC SCH ×2 (08:53→12:23)
[2020-10-07] MEDS ORDERED: INSULIN GLARGINE SOLOSTAR 100 UNITS/ML 3 ML PEN SC SCH (09:00)
--- NOTE | 2020-10-07 09:19 | Pulmonology Progress Note ---
Date of Service October 07, 2020 Assessment & Plan (1) Shortness of breath: (2) Elevated hemidiaphragm: (3) Obesity: Plan: CT chest 10/03/2020 personally reviewed: Mosaicism appreciated with dependent groundglass opacities Elevated left hemidiaphragm with compression atelectasis of the left lower lobe No mediastinal adenopathy Chest x-ray from [address] abdomen pelvis from 2015 were reviewed and it did not show elevation of the left hemidiaphragm at that time. Sniff test 10/05/2020: No evidence of diaphragm paralysis. Diminished motion could represent weakness or poor effort --Shortness of breath Worse when she is laying flat All of her symptoms started approximately a week ago Morbid obesity along with elevated diaphragm and diaphragmatic weakness could be one of the reasons ABG does not show any signs of hypercapnia. Patient recently had trauma while she was kayaking with her friend which resulted in chest pain Patient does have history of anxiety with panic attacks. She does not think this is panic attacks --Elevated left hemidiaphragm Etiology is unclear Patient denies any surgeries of the neck or chest area since 2014 The only surgery she had was cholecystectomy. Spirometry 10/06/2020 personally reviewed: Sitting: FEV1 1.04 L 39%, FVC 1.25 L 37%, FEV1/FVC 83% Supine: FEV1 0.66 L 25%, FVC 0.78 L 23%, FEV1/FVC 85% There is decrease in FVC by 14% going from sitting to supine which does go with diaphragmatic weakness. It seems patient will benefit from diaphragmatic plication. Weight loss is also recommended --Obesity Advised to lose with diet and exercise Plan: Full PFTs as an outpatient There is decrease in FVC by 14% from sitting to supine which does go with diaphragmatic weakness. CT surgeon consult after the spirometry could be thought of if they are willing to take the patient directly for possible plication of the left side Guaifenesin and flutter valve ordered for chest congestion. Pulmonary will follow peripherally. Please call directly with any questions. Please note the above document was generated using voice recognition software. It may contain grammatical, syntax or spelling errors.Any formal questions or concerns about the content, text or information contained within the body of this dictation should be directly addressed to the provider for clarification. Admission and Anticipated Discharge Date Admission Date: October 05, 2020 Subjective Patient seen and examined at bedside. No acute distress, no adverse events overnight. Patient has been using incentive spirometry but getting only 500 mL fluid. Patient did have spirometry done yesterday. Overall she feels better. Has been using flutter valve and able to bring up phlegm. Review of Systems Review of Systems: All systems reviewed & are unremarkable except as noted in Subjective Physical Exam Physical Exam: Constitutional: No acute distress HEENT: EOMI, PERRLA Respiratory system: Decreased air entry left lower lobe, no wheeze, no rhonchi, no crackle CVS: S1-S2 positive, no murmurs or gallops Abdomen: Soft, nontender, nondistended, positive bowel sounds x4, obese Extremities: +2 pulses bilaterally radialis/ dorsalis pedis, no cyanosis, no edema Neuro: Awake alert oriented x3 Psych: Normal mood and affect G/U: No [place] Skin: no rashes, warm and dry Lymphatic: no cervical or axillary lymphadenopathy Results & Data Results & Data ([facility]) Vital Signs (Past 12 Hours) Vital Signs Temp Pulse Pulse Resp BP Pulse Ox 10/07/20 08:26 36.5 C 77 16 137/83 98 10/07/20 07:19 93 H 10/07/20 03:31 37.1 C 91 H 20 130/85 90 10/07/20 00:00 36.5 C 86 18 117/78 90 10/06/20 22:19 93 H 10/06/20 05:17 10/06/20 05:17 PG Care Time/CCT Total # of Minutes Spent Total Time Spent with Patient: Total time spent is greater than 50% in coordination of care (as documented) at patient's floor/unit and/or counseling patient: Coding Level of Care Code 19363 Subseq Hosp Care Lvl 2 Diagnoses Shortness of breath R06.02 Elevated hemidiaphragm J98.6 Obesity E66.9
--- NOTE | 2020-10-07 12:42 | Hospitalist Progress Note ---
Date of Service October 07, 2020 Assessment & Plan (1) Orthopnea: Plan: Worsening SOB associated with orthopnea in the last 8 days CTA chest no pulmonary emboli identified although segmental and subsegmental pulmonary arteries suboptimally assessed due to respiratory motion. Low lung volumes with elevation of the left hemidiaphragm. Associated lingular and left lower lobe opacity reflects atelectasis. Additional moderate bilateral airspace opacities within lungs favor atelectasis although an infectious process could appear similar. pro-BNP WNL, no evidence of volume overload on chest CTA No sign of infection Afebrile, no leukocytosis or procal elevation to indicate PNA Received IV solumedrol and Zosyn on admission- Abx discontinued Continue to have pressure like chest discomfort Troponin negative x3 negative ECHO showed LV wall motion is normal to hyperdynamic. Ejection fraction 65 to 70% Cardiology on board Exercise stress echo was terminated after 6-minute due to patient became fatigue with no definite repolarization changes to suggest ischemia. As per cardio her symptom does not seem to correlate with cardiac etiology Referral placed for thoracic surgeon at [facility] for the elevate hemidiaphragm (2) Elevated hemidiaphragm: Plan: Etiology unknown CTA chest showed low lung volumes with elevation of the left hemidiaphragm Sniff test showed moderate elevation of the hemidiaphragms, greater on the left. No evidence for hemidiaphragm paralysis. However, diminished motion of both hemidiaphragms suggestive of paresis. Pulmonology on board Continue guaifenesin and flutter valve ABG obtained and did not showed any evidence of hypercapnic Patient will need outpatient full PFT to assess supine and upright spirometry to look at the left VC Spirometry 10/06/2020 reviewed by Pulm Sitting: FEV1 1.04 L 39%, FVC 1.25 L 37%, FEV1/FVC 83% Supine: FEV1 0.66 L 25%, FVC 0.78 L 23%, FEV1/FVC 85% There is decrease in FVC by 14% going from sitting to supine which does go with diaphragmatic weakness. As per Pulm pt might benefit from diaphragmatic plication. case discussed with Pulm Dr. Mendieta that suggest to check with case hardener to see if pt will be able to quality for trilogy or Bipap to use at night Pt does not qualify for Bipap or trilogy at this time as per case hardener. (insurance will not paid for it) Referral placed in epic for evaluation with thoracic surgeon at [facility] [place] (3) Diabetes mellitus, type II: Plan: Most recent hemoglobin A1c 11 on 10/05/20 Hold home agents BSG elevated at 324 following IV steroids in ED Pharmacy consulted for glycemic management life educator on board Patient agreed to start on insulin on discharge case discussed with pharmacy that recommended Lantus 45 unit daily Will discontinue glipizide on discharge Continue Trulicity and Metformin Continue monitor blood sugar (4) Panic disorder: Plan: Continue lexapro, bupropion, ativan PRN Obesity BMI 34.8 Counseling on weight loss DVT Ppx: SQ Lovenox Code status: FULL PCP: Renetta Ohara PA-C Dispo: Will discharge home today Admission and Anticipated Discharge Date Admission Date: October 05, 2020 Subjective Patient was seen and examined for follow-up of orthopnea and elevated hemidiaphragm Sitting in chair with no distress Pt said that she feels better today She said that she slept well last night with the head of the bed up She said that her breathing is better Denies any chest pain, palpitation, dizziness, shortness of breath. Physical Exam Physical Exam: General- No acute distress Head- atraumatic Eyes- PERRL, EOMI, ENT- oropharynx clear Neck- supple, no JVD Lungs- clear to auscultation Heart- regular rhythm; no murmur Abdomen- normal bowel sounds, soft, nontender Extremities- no calf tenderness Neuro- alert, oriented x 3; PERRL, EOMI; no facial palsy; no dysarthria Skin- warm & dry Results & Data Results & Data ([facility]) Vital Signs (Past 12 Hours) Vital Signs Temp Pulse Pulse Resp BP Pulse Ox 10/07/20 12:07 37.2 C 93 H 16 128/85 92 10/07/20 08:26 36.5 C 77 16 137/83 98 10/07/20 07:19 93 H 10/07/20 03:31 37.1 C 91 H 20 130/85 90
--- NOTE | 2020-10-07 13:37 | Discharge Summary ---
Date of Service October 07, 2020 Admission HPI Per Admitting Provider This is a 55yo F with a PMH of panic disorder, type 2 diabetes and obesity who presents with worsening shortness of breath and orthopnea over the past 8 days. Patient is more dyspneic when lying flat to the point that she has been sleeping in an upright position. Believes that anxiety is contributing. Also admits to more sedentary lifestyle in the setting of working from home. Denies any fever, chills, congestion or productive cough. Intermittent dry cough. No chest pain. Does endorse palpitations this evening since breathing treatment and steroids in ED. Denies any lower extremity swelling or history of CHF. Denies any history of tobacco use or COPD. No new medications other than starting glipizide for type 2 diabetes. Denies fever, chills, lightheadedness, headache, chest pain, wheezing, nausea, vomiting, abdominal pain, dysuria, diarrhea constipation. Was sent over by Dr. Thibodeaux for further evaluation of dyspnea. Admission Exam Per Admitting Provider General Appearance: WD/WN, vitals as above, NAD, sitting up in bed, pleasant, conversing easily Head: normocephalic, atraumatic Eyes: normal inspection, PERRL, conjunctivae normal, anicteric sclerae ENT: external ear and nose normal, oropharynx normal Neck: normal visual inspection, trachea midline, no thyromegaly Respiratory: increased respiratory effort, lungs diminished at bases, no wheeze, rales or rhonchi. + accessory muscle use Cardiovascular: tachycardic rate, rhythm, no murmur appreciated, normal peripheral pulses, no BLE edema. Vessels: no JVD Chest: normal inspection of chest Abdomen/GI: normal bowel sounds, soft, nontender, no hepatosplenomegaly Extremities/Musculoskeletal: no cyanosis or clubbing, extremities motor strength 5/5 Neurologic: PERRL, EOMI, accommodation nl, no face palsy, no dysarthria, CN's II-XI intact bilaterally and moves all extremities Psychiatric: A+Ox3, +anxious mood Skin: no rashes, normal color, warm/dry Principal Diagnosis Orthopnea (Shortness of Breath) Elevated hemidiaphragm: Diabetes mellitus, type II: Obesity Panic disorder: Discharge Exam General- No acute distress Head- atraumatic Eyes- PERRL, EOMI, ENT- oropharynx clear Neck- supple, no JVD Lungs- clear to auscultation Heart- regular rhythm; no murmur Abdomen- normal bowel sounds, soft, nontender Extremities- no calf tenderness Neuro- alert, oriented x 3; PERRL, EOMI; no facial palsy; no dysarthria Skin- warm & dry Discharge Data Allergies Allergy/AdvReac Type Severity Reaction Status Date / Time Tetracyclines Allergy Mild Rash Unverified 10/03/20 14:19 Consultations 10/03/20 17:39 ED Decision to Admit Stat 10/04/20 12:53 Consult Cardiology Routine 10/05/20 10:40 Consult Pulmonology Routine Ordered Studies 10/03/20 14:33 CT angio chest PE protocol Stat 10/05/20 11:30 FL sniff test Urgent FL sniff test CLINICAL HISTORY: orthopnea, concern for diaphragmatic dysfunction COMPARISON STUDY: Chest CT October 03, 2020. FLUOROSCOPY TIME: 0.3 minutes. FLUOROSCOPIC IMAGES: 0. Video fluoroscopy was performed. FINDINGS: There is moderate elevation of the hemidiaphragms, greater on the left. Lung volumes are diminished. There is no evidence for hemidiaphragm paralysis. However, there is diminished motion of both hemidiaphragms suggestive of paresis. There is no paradoxical motion of the hemidiaphragms. IMPRESSION: 1. Moderate elevation of the hemidiaphragms, greater on the left. 2. No evidence for hemidiaphragm paralysis. However, diminished motion of both hemidiaphragms suggestive of paresis. ACT 112: Negative or not required by law. Electronically signed by: Hung Cabral M.D. 10/05/2020 11:51 AM Dictated: 10/05/20 1141Transcribed: 10/05/20 1141 XR chest 2V PA/lateral CLINICAL HISTORY: orthopnea, concern for diaphragmatic paralysis COMPARISON STUDY: Chest radiograph May 09, 2014. Chest CT October 03, 2020. FINDINGS: Incidental note is made of cholecystectomy clips. Prominent gaseous distention of the colon is noted. Lung volumes are diminished. Moderate elevation the right hemidiaphragm is noted. There is mild elevation the right hemidiaphragm. There is no pneumothorax or pleural effusion. There is no evidence for pulmonary edema. Mild cardiomegaly is noted. Bibasilar opacities favor atelectasis. IMPRESSION: 1. Low lung volumes. Moderate elevation of the left hemidiaphragm and mild elevation of the right hemidiaphragm. 2. Bibasilar opacities which favor atelectasis. ACT 112: Negative or not required by law. Electronically signed by: Hung Cabral M.D. 10/05/2020 11:39 AM Dictated: 10/05/20 1137Transcribed: 10/05/[address] ANGIOGRAPHY OF THE CHEST, PULMONARY EMBOLUS PROTOCOL CLINICAL HISTORY: Chest pain. Shortness of breath. Evaluate for pulmonary embolus. COMPARISON STUDY: Chest radiograph May 09, 2014. TECHNIQUE: Following IV administration of 119 mL of Optiray, helical axial images of the chest were obtained utilizing the pulmonary embolus protocol. Maximal intensity projections and sagittal and coronal reformats were viewed on an independent 3D workstation. IV contrast was administered without complication. Automated exposure control was utilized for the study. A dose lowering technique was utilized adhering to the principles of ALARA. CT DOSE: 432.53 mGycm FINDINGS: No pulmonary emboli are identified although segmental and subsegmental pulmonary arteries are suboptimally assessed due to respiratory motion. Note is made of mild to moderate cardiomegaly. There is no pericardial effusion. Mild esophageal wall thickening is present. There is a possible small hiatal hernia. Elevation of the left hemidiaphragm is noted. Lung volumes are diminished. Subpleural lingular and left lower lobe opacity reflect atelectasis. There are additional moderate ground glass opacities within the lungs. Central airways are patent. No pneumothorax or pleural effusion. Lungs are suboptimally assessed due to respiratory motion. There is probable hepatic steatosis. IMPRESSION: 1. No pulmonary emboli identified although segmental and subsegmental pulmonary arteries suboptimally assessed due to respiratory motion. 2. Low lung volumes with elevation of the left hemidiaphragm. Associated lingular and left lower lobe opacity reflects atelectasis. Additional moderate bilateral airspace opacities within lungs favor atelectasis although an infectious process could appear similar. 3. Cardiomegaly. 4. Mild distal esophageal wall thickening. This is nonspecific although may reflect esophagitis. ACT 112: Negative or not required by law. Electronically signed by: Hung Cabral M.D. 10/03/2020 5:10 PM Dictated: 10/03/20 1704Transcribed: 10/03/20 1704 Diabetes Follow up Diabetes Follow-up Needed for HgbA1c >9% Hospital Course (1) Orthopnea: Worsening SOB associated with orthopnea in the last 8 days CTA chest no pulmonary emboli identified although segmental and subsegmental pulmonary arteries suboptimally assessed due to respiratory motion. Low lung volumes with elevation of the left hemidiaphragm. Associated lingular and left lower lobe opacity reflects atelectasis. Additional moderate bilateral airspace opacities within lungs favor atelectasis although an infectious process could appear similar. pro-BNP WNL, no evidence of volume overload on chest CTA No sign of infection Afebrile, no leukocytosis or procal elevation to indicate PNA Received IV solumedrol and Zosyn on admission- Abx discontinued Continue to have pressure like chest discomfort Troponin negative x3 negative ECHO showed LV wall motion is normal to hyperdynamic. Ejection fraction 65 to 70% Cardiology on board Exercise stress echo was terminated after 6-minute due to patient became fatigue with no definite repolarization changes to suggest ischemia. As per cardio her symptom does not seem to correlate with cardiac etiology Referral placed for thoracic surgeon at [facility] for the elevate hemidiaphragm (2) Elevated hemidiaphragm: Etiology unknown CTA chest showed low lung volumes with elevation of the left hemidiaphragm Sniff test showed moderate elevation of the hemidiaphragms, greater on the left. No evidence for hemidiaphragm paralysis. However, diminished motion of both hemidiaphragms suggestive of paresis. Pulmonology on board Continue guaifenesin and flutter valve ABG obtained and did not showed any evidence of hypercapnic Patient will need outpatient full PFT to assess supine and upright spirometry to look at the left VC Spirometry 10/06/2020 reviewed by Pulm Sitting: FEV1 1.04 L 39%, FVC 1.25 L 37%, FEV1/FVC 83% Supine: FEV1 0.66 L 25%, FVC 0.78 L 23%, FEV1/FVC 85% There is decrease in FVC by 14% going from sitting to supine which does go with diaphragmatic weakness. As per Pulm pt might benefit from diaphragmatic plication. case discussed with Pulm Dr. Mendieta that suggest to check with case making machine operator to see if pt will be able to quality for trilogy or Bipap to use at night Pt does not qualify for Bipap or trilogy at this time as per case making machine operator. (insurance will not paid for it) Referral placed in [facility] for evaluation with thoracic surgeon at [facility] (3) Diabetes mellitus, type II: Most recent hemoglobin A1c 11 on 10/05/20 Hold home agents BSG elevated at 324 following IV steroids in ED Pharmacy consulted for glycemic management community nutrition educator on board Patient agreed to start on insulin on discharge case discussed with pharmacy that recommended Lantus 45 unit daily Will discontinue glipizide on discharge Continue Trulicity and Metformin Continue monitor blood sugar (4) Panic disorder: Continue lexapro, bupropion, ativan PRN Obesity BMI 34.8 Counseling on weight loss DVT Ppx: SQ Lovenox Code status: FULL PCP: Renetta Ohara PA-C Dispo: Will discharge home today Total Time Total Time Spent Total Time Spent (In Minutes): 40 minutes Discharge Plan Discharge Items Patient Disposition: Home - Self-Care Reason For Visit: SOB, PNEUMONIA Discharge Diagnosis: Orthopnea (Shortness of Breath) Elevated hemidiaphragm: Diabetes mellitus, type II: Panic disorder: Activity: Resume your previous activity Non-emergency contact: Primary Care Provider and C Python Developer Call non-emergency contact if: you have any medication questions Follow-up/Referrals: Renetta Vaca PA-C [Primary Care Provider] - (Date & Time 10/12/2020 2:00 PM Provider Garcia Ohara III, MD Department [facility] ) Diet: Carb Consistent or DM2 Addtl Attending Provider Instructions: Follow up with your primary care provider Dr. Ohara on 10/12/2020 at 2:00 PM at the [facility] (referral placed) Follow up with Pulmonology if symptoms worsening Your will need a Full pulmonary function test (PFT) as an outpatient (Your provider or the repairer finished metal can arrange it) Seek medical attention if symptoms worsening Continue monitor your blood sugar Follow a healthy diabetes diet and limited concentrated sweet intake Counseling on weight loss Continue incentive spirometry and flutter valve every few hours Lab for myasthenia gravis panel pending (your provider will review the result with you at the following appointment) Pending Studies at Discharge: Yes Stand-Alone Forms: [employer], Smoking Cessation Medications and DC Order Prescriptions: New Lantus Solostar U-100 Insulin 100 unit/mL (3 mL) Insulin Pen 45 unit SC DAILY 30 Days Qty: 13.5 RF: 0 guaifenesin 200 mg tablet 200 mg PO TID PRN (Reason: cough) Qty: 30 RF: 0 (DME) pen needle,diabetic, disp unit 32 gauge x 5/32" needle See Rx Instructions .Route Qty: 100 RF: 0 Continued bupropion HCl [Wellbutrin SR] 150 mg Tablet Sustained-Release 12 Hr 150 mg PO BID RF: 0 metformin 1,000 mg Tablet 1,000 mg PO BID RF: 0 escitalopram oxalate 10 mg Tablet 10 mg PO DAILY RF: 0 Trulicity 1.5 mg/0.5 mL Pen Injector 1.5 mg SUBCUT CAO RF: 0 lorazepam 0.5 mg tablet 0.5 mg PO DAILY PRN (Reason: Anxiety) RF: 0 gabapentin 100 mg Tablet 200 mg PO HS RF: 0 Discontinued glipizide 10 mg tablet extended release 24hr 10 mg PO DAILY RF: 0 Discharge Orders: Discharge Order (Routine); Ordered 10/07/20 Ordered By: Gulshan Patricio Admission Data Admit Date/Time: 10/05/20 21:51 Attending Provider: Gulshan Patricio Admit Provider: Ed Nixon Primary Care Provider: Renetta Vaca Other Providers: Ed Nixon ; Jimy Pantoja ; Karol Ann
[2020-10-13 13:36] LABS: Anti-Striated Muscle NEGATIVE (NEGATIVE); Receptor Binding Ab <0.30 nmol/L
--- NOTE | 2020-10-18 14:33 | Coding Query ---
CODING QUERY To promote full compliance with coding requirements relating to patient care, provider participation is requested in all cases of betting clerks uncertainty. Please assist us with the question(s) below: Coding Question(s): Patient admitted with orthopnea. Incidental finding of elevated hemidiaphragm. Please document, if known or suspected, the etiology of the orthopnea. Thank you. Grey Kenney [facility] Physician's Response(s): Unknown etiology Principal Diagnosis: "that condition established after study, to be chiefly responsible for occasioning the admission of the patient to the hospital for care." Co-Existing Principal Diagnosis: "when two or more diagnoses equally meet the criteria for principal diagnosis as determined by the circumstances of admission, diagnostic work up, and/or therapy provided, and the Alphabetic Index, Tabular List, or another coding guideline does not provide sequencing direction, any one of the diagnoses may be sequenced first." "When the physician has documented what appears to be a current diagnosis in the body of the record, but has not included the diagnosis in the final diagnostic statement, the physician should be asked whether the diagnosis should be added." (Source Coding Clinic 2 QTR90. p3-4) [place]
== END 2020-10-07 14:11 | disposition home or self-care (01) | DRG 204 ==
LOC: 2N 12:09 → ED 12:09 → SUATTDRO 17:50 → 2N 20:19
DX: J98.11 Atelectasis; Z83.3 Family history of diabetes mellitus; E66.9 Obesity, unspecified; J96.01 Acute respiratory failure with hypoxia; R06.01 Orthopnea; Z68.34 Body mass index [BMI] 34.0-34.9, adult; E11.9 Type 2 diabetes mellitus without complications; F41.0 Panic disorder [episodic paroxysmal anxiety]; Z79.84 Long term (current) use of oral hypoglycemic drugs; J98.6 Disorders of diaphragm